=== PATIENT | female | born 1980 | race Caucasian/White ===

== ENCOUNTER 2022-10-20 07:28 | Day surgery (SDC) | payer BC ==
[~2022-10-20 07:28] MED LIST: Lactated Ringers 1,000 ML IV ONE; Sensorcaine 0.25% 10 ML ONE
[2022-10-20] MEDS ORDERED: CEFAZOLIN 2 GM-D5W BAG** 2 GM/50 ML ML IV SCH (07:30)
[2022-10-20] MEDS ORDERED: Lactated Ringers 1,000 ML IV SCH (07:30)
[2022-10-20 08:07] VITALS: O2SAT 98
[2022-10-20] MEDS ORDERED: Lactated Ringers 1,000 ML IV ONE ×2 (08:15→11:32)
[2022-10-20] MEDS ORDERED: CEFAZOLIN 2 GM-D5W BAG** 2 GM/50 ML ML IV ONE (08:15)
[2022-10-20] MEDS ORDERED: Transderm Scop 1.5MG Patch TOP PRN (08:46)
[2022-10-20] MEDS ORDERED: Versed 2 MG/2 ML Injection IV PRN (08:47)
[2022-10-20] MEDS ORDERED: Transderm Scop 1.5MG Patch ONE (08:49)
[2022-10-20] MEDS ORDERED: Versed 2 MG/2 ML Injection ONE ×2 (08:49→10:09)
[2022-10-20] MEDS ORDERED: Zemuron 100 MG/10 ML ONE (10:07)
[2022-10-20] MEDS ORDERED: DIPRIVAN 200 MG/20 ML IV ONE (10:08)
[2022-10-20] MEDS ORDERED: SUBLIMAZE 100 MCG/2 ML ONE ×2 (10:09→12:09)
[2022-10-20] MEDS ORDERED: Xylocaine-Mpf 2% 5 Ml Vial ONE (10:57)
[2022-10-20] MEDS ORDERED: Zofran 4 MG/2 ML VIAL ONE (11:05)
[2022-10-20] MEDS ORDERED: Decadron 4 MG INJ ONE (11:05)
[2022-10-20] MEDS ORDERED: TORAdol 30 mg Injection ONE ×2 (11:05→11:06)
[2022-10-20] MEDS ORDERED: BRIDION 200MG/2ML IV ONE (11:27)
[2022-10-20 13:20] VITALS: BP 128/76; PULSE 54
[2022-10-20 14:46] LABS: Appearance Cloudy (Clear); Bacteria None Seen /HPF (None Seen); Bilirubin Negative (Negative); Blood Negative (Negative); Epithelial Cells None Seen /HPF (None Seen); Glucose, Urine Negative (Negative); Hyaline Casts NONE SEEN /LPF (0-2); Ketones Negative (Negative); Leukocyte Esterase Negative (Negative); Nitrite Negative (Negative); Protein,Urine Dip Negative (Negative); RBC 0-2 /HPF (0-5); WBC 0-2 /HPF (0-5)
--- NOTE | 2022-10-21 09:46 | OP ---
SURGERY DATE/TIME: 10/20/2022 1055 PREOPERATIVE DIAGNOSES: 1) Multiparity desiring tubal sterilization with currently retained IUD. 2) Abnormal uterine bleeding. POSTOPERATIVE DIAGNOSES: 1) Multiparity desiring tubal sterilization with currently retained IUD. 2) Abnormal uterine bleeding. PROCEDURES: 1) Removal of intrauterine device. 2) D&C with NovaSure ablation. 3) Bilateral tubal sterilization via Falope ring application and bipolar sterilization. SURGEON: Norm Esteban D.O. BASKET FILLER: Antoinette Zhao feed research technician. ANESTHESIA: General. ESTIMATED BLOOD LOSS: Minimal. COMPLICATIONS: None. INDICATIONS: The risks, benefits, indications and alternatives of the procedure were reviewed with the patient prior to the procedure. The patient understood the risk of infection, bleeding, bowel injury, bladder injury, ureteral injury, uterine perforation, pelvic infection, possible ectopic , possible associated with this surgery and desires to have this surgery as a possible means to alleviate her current medical condition. DESCRIPTION OF PROCEDURE AND FINDINGS: At this point the patient is taken to the operating room, given general sedation, placed in dorsal lithotomy position, prepped and draped in the usual sterile fashion. A weighted speculum is then placed in the patient's vagina and at this point the polyp forceps were used and entered through the endocervical region where the instrument was used to remove the intrauterine device and was done so without complication. From this point uterine manipulator was then inserted in through endocervical region as a means to manipulate the uterus and elevate the uterus. Attention was then turned to the patient's abdomen where a 5 mm skin incision was made in the umbilical fold where 5 mm trocar and sleeve were advanced under direct visualization where pneumoperitoneum was obtained with 4 liters of CO2 gas. An additional incision was made approximately 2 cm above the symphysis pubis where an 8 mm incision was made and an 8 mm trocar and sleeve were advanced under direct visualization. A survey of the patient's pelvis and abdomen revealed entirely normal anatomy with no gross abnormalities that were noted. From this point the uterus was then elevated and at this point the Falope ring applicator was then placed on the right isthmic region of the fallopian tube. However on doing so, the Falope ring was then applied to one segment of the tube and splayed the other side requiring bipolar coagulation which was done so on two to three contiguous regions on the right side and hemostasis was obtained. The same procedure was performed on the right side where the Falope ring was deployed on the right isthmic region of the tube. However again the tube splayed and split where the bipolar instrument was used to coagulate the cut ends as well as on the cornual region and hemostasis was obtained on its side as well. From this point all instruments were removed from the patient's abdominal region. The incisions were closed with 4-0 Monocryl suture. Attention was then turned to the patient's vaginal region where a weighted speculum was then placed in the patient's vagina and the anterior lip of the cervix grasped with single tooth tenaculum. Endocervical dilators were advanced through the endocervical region where at this point a curette was then placed in the fundus of the uterus and curettage performed in all quadrants of the uterus retrieving a mild to moderate amount of tissue. From this point the NovaSure was then used and went through the endocervical region and retracted approximately 1 cm with an in depth of 6.5 cm and a width of 2.8 cm where the instrument was then turned on with an ablative time of approximately 45 seconds. After complete ablation, the instrument was then disengaged and removed from the uterine cavity without complication. From this point all instruments were removed from the patient's vaginal region. The patient was then taken out of the dorsal lithotomy position, was then taken to the recovery room in stable condition. All instruments and laps were accounted for x2.
== END 2022-10-20 13:25 | disposition home or self-care (01) ==
LOC: SDC 07:28
PROVIDERS: ATTEND Obstetrics & Gynecology
DX: Z30.2 Encounter for sterilization (principal); N93.9 Abnormal uterine and vaginal bleeding, unspecified
CPT/HCPCS: 81001; 81025; 87086; J0690; J1100; J1885; J2250; J2405; J2704; J3010; A9270-GY